=== PATIENT | male | born 1970 | race African-American/Black ===

== ENCOUNTER 2017-01-20 11:28 | Emergency (ER) | payer OTHER ==
--- NOTE | ~2017-01-20 | CT4 ---
[facility] A Service of [facility] RADIOLOGY TEXT RESULTS PATIENT: HARVINDER YOUSSEF LOCATION: [facility] : [birth year] UNIT #: [id number] AGE: [address]: Konstantin Diaz MD SEX: M ORDER DR: [id number] [facility] [address] [place], [place] [address] [id number] E MR#: [id number] Acc #: [id number] NAME: HARVINDER YOUSSEF : 1970 SEX: M STUDY DATE/TIME: 01/20/2017 11:45 UNIT: [facility] ROOM: STUDY DESCRIPTION: CT Abd and Pelv Wo Cont Attending Physician: Konstantin Diaz M.D. Ordering Physician: Konstantin Diaz M.D. Primary Care Physician: Melva Clark M.D. MEDICAL IMAGING REPORT This report is preliminary unless electronic signature is present EXAM CT abdomen pelvis. HISTORY The history is lower abdomen pain, hematuria since 01/19/2017. Prior history of kidney stones. Seizures. Hernia repair. TECHNIQUE CT abdomen and pelvis performed without administration of oral or intravenous contrast. This CT exam was performed with one or more of the following radiation dose reduction techniques: automatic exposure control, adjustment of mA and/or kV according to patient size, and iterative reconstruction. COMPARISON 02/25/2016. FINDINGS Linear scarring left lung base. Inferior heart and pericardium unremarkable. Liver, gallbladder, spleen, pancreas, adrenal glands unremarkable. Bilateral renal cysts unchanged in comparison to prior contrast-enhanced examination. No hydronephrosis or nephrolithiasis. No secondary signs of recent stone passage. CT Pelvis: Postoperative changes of bilateral inguinal hernia repair. Probable small residual inguinal hernias bilaterally. The urinary bladder is abnormal. The bladder is not pathologically dilated, but there is abnormal wall thickening involving much of the bladder wall, most pronounced along its right lateral aspect. Bladder wall measures up to 2.1 mm in thickness, markedly disproportionate to its volume. More normal appearing bladder wall, posteroinferiorly and along the left posterolateral aspect. Extensive stranding in the perivesical fat [facility] A Service of [facility] RADIOLOGY TEXT RESULTS PATIENT: HARVINDER YOUSSEF LOCATION: [facility] : [birth year] UNIT #: [id number] AGE: [address]: Konstantin Diaz MD SEX: M ORDER DR: extending into the region of the bilateral small residual inguinal hernias and extending into the fat cephalad to the urinary bladder. No drainable perivesical fluid collection is seen, though there are small slips of fluid adjacent to the urinary bladder. There is no free air. Given the extensive perivesical inflammatory change, I favor severe cystitis of an infectious or inflammatory nature as etiology of the bladder wall thickening. Possibility of neoplastic disease is not excluded. Correlate with clinical presentation, laboratory data and urinalysis. Cystoscopy may be warranted for further assessment. Certainly, followup to complete radiographic resolution would be strongly recommended. There is a trace amount of free fluid in the deep dependent pelvis. Not a drainable fluid collection. No inguinal adenopathy. No pelvic or retroperitoneal adenopathy. The distal esophagus, stomach, small bowel unremarkable. There are surgical clips in the right lower quadrant which may reflect prior appendectomy. Correlate with surgical history. The colon shows no acute abnormality. Vascular structures normal in overall caliber. Bilateral L5 pars interarticularis defects with grade 1 anterolisthesis L5 on S1. Stable appearance. No acute-appearing bony abnormality. Stable sacral dural ectasia. IMPRESSION 1. Abnormal examination. See complete dictation above for full details. Markedly abnormal bladder wall thickening involving much of the bladder wall with relative sparing of the posterior and left posterolateral bladder wall. Along the right bladder the wall measures up to 2.1 cm in thickness and is markedly disproportionate to the volume of the bladder. Extensive perivesical inflammatory change, with small slips of fluid adjacent to the urinary bladder and in the deep dependent pelvis, but no drainable fluid collection. No intramural bladder wall air. No hyperdense material to suggest hemorrhage. Findings probably reflect severe infectious or inflammatory cystitis. Given the asymmetric appearance of the bladder wall thickening, bladder neoplasm is in the differential diagnosis. Please correlate with the patient's clinical presentation and urinalysis data. Consider further assessment with cystoscopy. Followup to complete radiographic resolution is strongly recommended. 2. There is no resulting urinary obstruction. No renal calculi. No ureteral calculi. No acute perinephric findings. Note made of small renal cysts as seen on prior study. 3. Status post umbilical hernia repair. Postoperative changes at this location on prior examination have resolved. 4. Bilateral inguinal hernia repairs. Small fat containing residual hernias are felt to be present. 5. Appendix not visualized, but there are surgical clips in the right lower quadrant suggesting prior appendectomy. Correlate with history. 6. Remainder of alimentary canal unremarkable. 7. Stable appearance of bilateral L5 pars interarticularis defects with resulting grade 1 anterolisthesis L5 on S1. There is no acute-appearing bony abnormality. [facility]. [facility] A Service of [facility] RADIOLOGY TEXT RESULTS PATIENT: HARVINDER YOUSSEF LOCATION: [facility] #: [id number] : [birth year] UNIT #: [id number] AGE: [address]: Konstantin Diaz MD SEX: M ORDER DR: 8. Stable appearance of sacral dural ectasia. Dictated by... Emmanuel Barnes M.D. THIS IS AN ELECTRONICALLY VERIFIED REPORT Emmanuel Barnes M.D. at 01/21/2017 4:50 PM FRANCIA/elton TD: 01/20/2017 14:37 JOB #: [id number] MEDICAL IMAGING REPORT Page 1 of 1 COPY
[2017-01-20 11:05] LABS: URINE SOURCE CLEAN CATCH
[2017-01-20 11:28] LABS: URINE BILIRUBIN NEG (NEG); URINE BLOOD 4+ (NEG); URINE COLOR RED; URINE GLUCOSE NORM (NORM); URINE KETONE NEG (NEG); URINE LEUKOCYTE ESTERASE NEG (NEG); URINE NITRATE NEG (NEG); URINE PROTEIN 3+ (NEG); URINE SPECIFIC GRAVITY 1.015 (1.003-1.035); URINE UROBILINOGEN NORM (NORM)
[~2017-01-20 11:28] MED LIST: AUGMENTIN PO; CIPRO PO; COUMADIN5 MG PO; DILANTIN; FLEXERIL10 M1 PO; FLEXERIL10 MG PO; FLOMAX0.4 M1 PO; HYDROCODON-ACE1 EAC5 PO; IBUPROFEN800 MG PO; LOVENOX80 MG/0.8 INJ; MEDROL DOSEPAK4 MG PO; MUCINEX DM1 TAB.SR . PO; NAPROSYN-EC500 MG DOB; NAPROSYN500 MG PO; NO MEDICATIONS; NORCO 5/325 TAB1 TAB PO; OXYCODONE-APAP1 EAC5 PO; PERCOCET 10/3251 TAB PO; PHENERGAN PO; VICODIN 5/500 T1 TAB PO
[2017-01-20 11:44] LABS: URINE APPEARANCE BLOODY
[2017-01-20 11:45] LABS: URBCS1 AUWI INNUM /[HPF] (0-2)
[2017-01-20 11:46] LABS: CULTURE INDICATED? NO; URINE BACTERIA AUWI NEG (NEGATIVE); UWBCS1 AUWI 0-2 (0-5)
[2017-01-20 11:56] LABS: BASOPHIL% 0.5 % (0-2.5); EOSINOPHIL# 0.1 X10e3 (0-0.7); EOSINOPHIL% 0.6 % (0.0-7.0); HEMATOCRIT 44.1 % (38.0-50.0); HEMOGLOBIN 14.7 gm/dL (13.0-16.0); LYMPHOCYTE# 1.3 X10e3 (1.0-3.5); LYMPHOCYTE% 13.6 % (17.0-45.0); MEAN CELL VOLUME 85.6 FL (83-96); MEAN CORPUSCULAR HEMOGLOBIN 28.6 PG (28-34); MEAN CORPUSCULAR HGB CONC 33.4 g/dL (30-36); MEAN PLATELET VOLUME 7.7 FL (6.5-11.5); MONOCYTE# 0.7 X10e3 (0-1.0); MONOCYTE% 7.4 % (3.0-12.0); NEUTROPHIL# 7.4 X10e3 (1.5-7.1); NEUTROPHIL% 77.9 % (40-75); PLATELET COUNT 283 X10e3 (140-420); RED BLOOD COUNT 5.16 X10e (3.90-5.60); RED CELL DISTRIBUTION WIDTH 12.6 % (11.0-15.5); WHITE BLOOD COUNT 9.5 X10e3 (4.0-10.5)
[2017-01-20 11:57] LABS: DIFF IND NO
[2017-01-20 12:11] LABS: INR 1.7; PARTIAL THROMBOPLASTIN TIME 30.8 SECONDS (23.5-31.3); PROTHROMBIN TIME (PATIENT) 18.7 SECONDS (9.6-11.5)
[2017-01-20 12:19] LABS: ALBUMIN SERUM 4.1 g/dL (3.5-5.0); BILIRUBIN, DIRECT 0.1 mg/dL (0.0-0.2); BILIRUBIN,INDIRECT 0.7 mg/dL (0.0-0.9); BILIRUBIN,TOTAL 0.8 mg/dL (0.2-2.0); BUN/CREATININE RATIO 16.66; CREATININE SERUM 0.9 mg/dL (0.6-1.4); GLOM FILT RATE Estimated 116.6 mL/min (>60); PROTEIN TOTAL SERUM 7.5 g/dL (6.0-8.3)
== END 2017-01-20 14:49 | disposition home or self-care (01) ==
LOC: CED 11:28
PROVIDERS: Emergency Medicine
DX: R31.9 Hematuria, unspecified (principal); Z86.718 Personal history of other venous thrombosis and embolism
CPT/HCPCS: 36415; 74176; 80048; 80076; 81003; 83690; 85025; 85610; 85730; 96361; 96374; 99284; J2405

== ENCOUNTER 2017-05-28 14:42 | Emergency (ER) | payer OTHER ==
[~2017-05-28] VITALS: Ht 170.2 cm; Wt 74.4 kg
--- NOTE | ~2017-05-28 | CT4 ---
[facility] A Service of [facility] RADIOLOGY TEXT RESULTS PATIENT: HARVINDER YOUSSEF LOCATION: [facility] : [birth year] UNIT #: [id number] AGE: [address]: Vega Adams MD SEX: M ORDER DR: [id number] [facility] [address] [place], [place] [address] [id number] E MR#: [id number] Acc #: [id number] NAME: HARVINDER YOUSSEF. : 1970 SEX: M STUDY DATE/TIME: 05/28/2017 15:27 UNIT: [facility] ROOM: STUDY DESCRIPTION: CT Abd and Pelv Wo Cont Attending Physician: Vega Adams M.D. Ordering Physician: Vega Adams M.D. Primary Care Physician: Melva Clark M.D. MEDICAL IMAGING REPORT This report is preliminary unless electronic signature is present EXAM CT abdomen and pelvis without contrast HISTORY Vomiting for 1 week. Diffuse abdomen pain and diarrhea and left lower quadrant pain. FINDINGS CT abdomen and pelvis was performed without contrast. This CT exam was performed with one or more of the following radiation dose reduction techniques: Automatic exposure control, adjustment of mA and/or kV according to patient size, and iterative reconstruction. CT ABDOMEN: Incidental subcentimeter cyst in the lateral segment left hepatic lobe. Remainder of the liver is unremarkable. Gallbladder, spleen, pancreas, and adrenal glands are normal. Incidental small bilateral renal cysts. No renal calculi. No hydronephrosis. No bowel dilatation. No inflammatory stranding. Normal caliber abdominal aorta. CT PELVIS: Normal appendix. Mild diffuse urinary bladder wall thickening, much less extensive than on CT 01/20/2017. This could be secondary to bladder wall hypertrophy or mild cystitis. Interval resolution of the extensive stranding about the urinary bladder noted on the prior study. Umbilical hernia repair. Prior bilateral inguinal hernia repair. No adenopathy. Incidental bilateral spondylolysis at L5. Grade I spondylolisthesis of L5 on S1. 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 IMPRESSION 1. Mild diffuse wall thickening of the urinary bladder is dramatically improved compared to 01/20/2017. This could be secondary to mild bladder wall hypertrophy or cystitis. 2. No urinary obstruction. No urinary calculi. [facility] A Service of [facility] RADIOLOGY TEXT RESULTS PATIENT: HARVINDER YOUSSEF LOCATION: [facility] #: [id number] : [birth year] UNIT #: [id number] AGE: [address]: Vega Adams MD SEX: M ORDER DR: 3. Umbilical hernia repair and bilateral inguinal hernia repair. 4. No inflammatory stranding or free fluid. Dictated by... Enrrique Martinez M.D. THIS IS AN ELECTRONICALLY VERIFIED REPORT Enrrique Martinez M.D. at 05/29/2017 10:06 PM DFMalachi/corinne TD: 05/29/2017 16:58 JOB #: [id number] MEDICAL IMAGING REPORT Page 1 of 1 COPY
[2017-05-28 15:33] LABS: URINE SOURCE CLEAN CATCH
[2017-05-28 15:38] LABS: URINE APPEARANCE CLEAR; URINE BILIRUBIN NEG (NEG); URINE BLOOD TRACE (NEG); URINE COLOR YELLOW; URINE GLUCOSE NEG (NEG); URINE KETONE NEG (NEG); URINE LEUKOCYTE ESTERASE NEG (NEG); URINE NITRATE NEG (NEG); URINE PH 5.5 (5-8); URINE PROTEIN NEG (NEG); URINE SPECIFIC GRAVITY 1.017 (1.003-1.035); URINE UROBILINOGEN 0.2 MG/DL (NEG)
[2017-05-28 15:41] LABS: URINE BACTERIA AUWI NEG (NEGATIVE); URINE SQUAMOUS EPITHELIAL CELL NONE SEEN /[HPF]; UWBCS1 AUWI 0-2 (0-5)
[2017-05-28 15:42] LABS: CULTURE INDICATED? NO
== END 2017-05-28 16:16 | disposition home or self-care (01) ==
LOC: CED 14:42
PROVIDERS: Emergency Medicine
DX: R10.32 Left lower quadrant pain (principal); Z86.718 Personal history of other venous thrombosis and embolism; Z98.890 Other specified postprocedural states
CPT/HCPCS: 74176; 81003; 99284

== ENCOUNTER 2017-06-09 13:23 | Emergency (ER) | payer OTHER ==
[~2017-06-09] VITALS: Ht 170.2 cm; Wt 73.5 kg
--- NOTE | ~2017-06-09 | CR72 ---
[facility] A Service of [facility] & [facility] RADIOLOGY TEXT RESULTS PATIENT: HARVINDER YOUSSEF LOCATION: [facility] : 66 UNIT #: [id number] AGE: [address]: Vega Grant MD SEX: M ORDER DR: [id number] [facility] [address]. [place], [place] [address] [id number] E MR#: [id number] Acc #: [id number] NAME: HARVINDER YOUSSEF. : 1970 SEX: M STUDY DATE/TIME: 06/09/2017 15:15 UNIT: [facility] ROOM: STUDY DESCRIPTION: CR Chest Single View Portable Attending Physician: Clay Grant M.D. Ordering Physician: Ed Heriberto Thao M.D. Primary Care Physician: Melva Clark M.D. MEDICAL IMAGING REPORT This report is preliminary unless electronic signature is present EXAM Portable chest, 06/09/2017. COMPARISON 05/07/2016 INDICATIONS Chest pain, numbness in left arm beginning today. FINDINGS A portable view of the chest is obtained. The heart size and vascularity are normal and the lungs are clear. The bones are unremarkable. IMPRESSION No active disease. Dictated by... Urbano Boyer M.D. THIS IS AN ELECTRONICALLY VERIFIED REPORT Urbano Boyer M.D. at 06/10/2017 8:03 AM JESSICA/mohan TD: 06/09/2017 21:53 JOB #: [id number] MEDICAL IMAGING REPORT Page 1 of 1 COPY
--- NOTE | ~2017-06-09 | EKG ---
PATIENT: HARVINDER YOUSSEF UNIT #: [id number] Ventricular Rate: 90 BPM Atrial Rate: 90 BPM P-R Interval: 126 ms QRS Duration: 84 ms Q-T Interval: 336 ms QTC Calculation(Bezet): 411 ms P [place]: 69 degrees Calculated R [place]: 55 degrees Calculated T [place]: 76 degrees Diagnosis Line: Normal sinus rhythm Diagnosis Line: Normal ECG Diagnosis Line: When compared with ECG of 21-MAY-2016 13:15, Diagnosis Line: No significant change was found Diagnosis Line: Confirmed by LISA BUTT MD ([id number]) on 06/10/2017 Diagnosis Line: 5:03:37 PM INTERPRETING MD: DAQUAN RUBIN
[2017-06-09 15:54] LABS: BASOPHIL# 0.1 X10e3 (0-0.3); BASOPHIL% 1.1 % (0-2.5); EOSINOPHIL# 0.3 X10e3 (0-0.7); EOSINOPHIL% 4.8 % (0.0-7.0); HEMATOCRIT 43.3 % (38.0-50.0); HEMOGLOBIN 15.1 gm/dL (13.0-16.0); LYMPHOCYTE% 28.2 % (17.0-45.0); MEAN CELL VOLUME 84.1 FL (83-96); MEAN CORPUSCULAR HEMOGLOBIN 29.3 PG (28-34); MEAN CORPUSCULAR HGB CONC 34.9 g/dL (30-36); MEAN PLATELET VOLUME 7.7 FL (6.5-11.5); MONOCYTE# 0.7 X10e3 (0-1.0); MONOCYTE% 10.7 % (3.0-12.0); NEUTROPHIL# 3.8 X10e3 (1.5-7.1); NEUTROPHIL% 55.2 % (40-75); PLATELET COUNT 232 X10e3 (140-420); RED BLOOD COUNT 5.16 X10e (3.90-5.60)
[2017-06-09 15:59] LABS: DIFF IND NO
[2017-06-09 16:05] LABS: INR 2.1; PARTIAL THROMBOPLASTIN TIME 32.2 SECONDS (23.5-31.3); PROTHROMBIN TIME (PATIENT) 22.9 SECONDS (10.0-11.7)
[2017-06-09 16:14] LABS: ALBUMIN SERUM 4.4 g/dL (3.5-5.0); BILIRUBIN, DIRECT 0.1 mg/dL (0.0-0.2); BILIRUBIN,INDIRECT 0.3 mg/dL (0.0-0.9); BILIRUBIN,TOTAL 0.4 mg/dL (0.2-2.0); BUN/CREATININE RATIO 22.72; CALCIUM SERUM 9.2 mg/dL (8.4-10.2); CREATININE SERUM 1.1 mg/dL (0.6-1.4); GLOM FILT RATE Estimated 91.5 mL/min (>60); POTASSIUM 3.9 mmol/L (3.5-5.1); PROTEIN TOTAL SERUM 7.8 g/dL (6.0-8.3)
[2017-06-09 16:52] LABS: POC - CKMB 1.4 ng/mL (0.0-7.9); POC - TROPONIN <0.05 ng/mL (<=0.05)
[2017-06-09 17:06] LABS: POC - TROPONIN <0.05 ng/mL (<=0.05)
== END 2017-06-09 17:44 | disposition home or self-care (01) ==
LOC: CED 13:23
PROVIDERS: Emergency Medicine
DX: R07.89 Other chest pain (principal); Z86.718 Personal history of other venous thrombosis and embolism; Z79.01 Long term (current) use of anticoagulants
CPT/HCPCS: 36415; 71010; 80048; 80076; 82553; 84484; 85025; 85610; 85730; 93005; 96374; 99285; J1885